=== PATIENT | female | born 1945 | race Caucasian/White ===

== ENCOUNTER → 2018-12-06 | Day surgery (SDC) | payer MEDICARE ==
[2018-12-04 14:16] LABS: BASOPHILS % 0.3 % (0.0-1.0); EOSINOPHILS # (AUTO) 0.1 (0.0-0.4); EOSINOPHILS % 1.1 % (0.0-6.0); HEMATOCRIT 43.5 % (34.2-44.1); HEMOGLOBIN 14.2 g/dL (12.0-16.0); LYMPHOCYTES # (AUTO) 2.1 (1.0-3.2); LYMPHOCYTES % 19.8 % (18.0-39.1); MEAN CORPUSCULAR HEMOGLOBIN 31.5 pg (28-32); MEAN CORPUSCULAR HGB CONC 32.6 g/dL (31-35); MEAN CORPUSCULAR VOLUME 96.5 fL (81-99); MONOCYTES # (AUTO) 0.6 (0.2-0.8); MONOCYTES % 5.5 % (4.4-11.3); NEUTROPHILS # (AUTO) 7.9 (2.1-6.9); NEUTROPHILS % 72.7 % (38.7-80.0); PLATELET COUNT 284 x10e3/uL (140-360); RED BLOOD COUNT 4.51 x10e6/uL (3.6-5.1); RED CELL DISTRIBUTION WIDTH 12.6 % (11.7-14.4)
[2018-12-04 14:28] LABS: INR 0.87; PROTHROMBIN TIME 12.3 seconds (11.9-14.5)
[2018-12-04 14:29] LABS: PARTIAL THROMBOPLASTIN TIME 25.6 seconds (23.8-35.5)
[2018-12-04 14:31] LABS: ANION GAP 16.4 mmol/L (8-16); CALCIUM 9.7 mg/dL (8.4-10.2); CREATININE, SERUM 1.29 mg/dL (0.57-1.11); POTASSIUM 5.4 mmol/L (3.5-5.1)
--- NOTE | 2018-12-04 15:18 | Diagnostic Imaging Report ---
EXAMINATION: PA and lateral views of the chest. COMPARISON: None CLINICAL HISTORY: Preoperative study for cardiac catheterization DISCUSSION: Left subclavian approach implantable cardiac device body projects over the left midlung. Leads project over the right atrium and right ventricle. Median sternotomy wires and mediastinal surgical clips. The lungs are well-inflated and without consolidation, pleural effusion, or pneumothorax. Normal heart size without overt pulmonary edema. No acute osseous abnormality. Multilevel degenerative disc changes of the thoracic spine. Left lower cervical surgical clips may relate to carotid endarterectomy. IMPRESSION: No acute cardiopulmonary abnormalities. Signed by: Dr. Anders Gleason M.D. on 12/04/2018 3:15 PM
[2018-12-06] VITALS (16 sets, daily range): BP systolic 110–149; BP diastolic 56–96
[~2018-12-06] VITALS: Ht 162.6 cm; Wt 98.0 kg
[~2018-12-06] MED LIST: AMLODIPINE BESYL5 MG PO; ATORVASTATIN CA10 MG PO; BYDUREON 2 MG SQ; CALCIUM 600 +1 EAC2 PO; CENTRUM SILVER VIT PO; D3-5050000 UNIT PO; FENTANYL CITRATE/PF 100MCG/2 ML INJ ONE; HEPARIN SOD (PORCINE) 1000 UNIT/ML 30ML ONE; HEPARIN SOD/SOD CHLORIDE 2,000 ML ONE; HYDROCODONE/APAP 5MG-325MG TAB ONE; HYDROCODONE/APAP 5MG-325MG TAB PO ONE; IOPAMIDOL 370 MG/ML 200 ML INFUS..BTL INJ ONE; LIDOCAINE HCL 2% LOCAL 20 ML VIAL ONE; METRONIDAZOLE 1% TP; MIDAZOLAM HCL 2 MG/2 ML VIAL ONE; NITROGLYCERIN/D5W 200 MCG/ML 250 ML ONE; RAMIPRIL5 MG PO; SODIUM CHLORIDE 0.9% 1000ML 1,000 ML ONE; [UNRECOGNIZED DRUG - OTHER] SQ
--- OUTSIDE RECORDS SUMMARY | 2018-12-06 06:28 | XMS REPORT ---
Author Author [facility] Address Unknown Phone Unavailable Care Team Providers Care Bus Driver Name Role Phone VERÓNICA WHITE Unavailable Unavailable Problems This patient has no known problems. Allergies, Adverse Reactions, Alerts This patient has no known allergies or adverse reactions. Medications This patient has no known medications. Results Test Description Test Time Test Comments Text Results Atomic Results Result Comments CHEST 2 VIEWS 2018-12-04 15:14:00 [place] [address] Patient Name: BILLY LOCK MR #: [id number] : 1945 Age/Sex: 73/F Req #: [id number] Adm Physician: Ordered by: VERÓNICA WHITE MD Report #: [id number] Location: RADIOLOGY MANAGER Room/Bed: Procedure: [id number] DX/CHEST 2 VIEWS Exam Date: 12/04/18 Exam Time: 1425 REPORT STATUS: Signed EXAMINATION: PA and lateral views of the chest. COM PARISON: None CLINICAL HISTORY: Preoperative study for cardiac catheterization DISCUSSION: Left subclavian approach implantable cardiac device body projects over the left midlung. Leads project over the right atrium and right ventricle. Median sternotomy wires and mediastinal surgical clips. The lungs are well-inflated and without consolidation, pleural effusion, or pneumothorax. Normal heart size without overt pulmonary edema. No acute osseous abnormality. Multilevel degenerative disc changes of the thoracic spine. Left lower cervical surgical clips may relate to carotid endarterectomy. IMPRESSION: No acute cardiopulmonary abnormalities. Signed by: Dr. Nuvia Stack M.D. on 12/04/2018 3:15 PM Dictated By: NUVIA STACK MD [id number] Transcribed By: BRUNA on 12/04/18 [id number] COPY TO: VERÓNICA WHITE MD
[2018-12-06 07:33] LABS: ANION GAP 14.1 mmol/L (8-16); BLOOD UREA NITROGEN 18 mg/dL (7-26); BUN/CREATININE RATIO 21 (6-25); CALCIUM 9.4 mg/dL (8.4-10.2); CARBON DIOXIDE 25 mmol/L (22-29); CHLORIDE 105 mmol/L (98-107); CREATININE, SERUM 0.85 mg/dL (0.57-1.11); EST GLOMERULAR FILTRATION RATE > 60 ML/MIN (60-); GLUCOSE 179 mg/dL (74-118); POTASSIUM 4.1 mmol/L (3.5-5.1); SODIUM 140 mmol/L (136-145)
--- NOTE | 2018-12-06 09:13 | NUR ---
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 Family at bedside Reviewed POC with Dr Escudero at family and pt. Copies of DC given to family. RT groin manual hold. No gross signs pain,pallor.pressure or dysrhythmia.No current hematoma . Clean and dry dressing. Abdomen soft and non tender denies necessity to defecate Voided qs on bedpan. left arm iv infusing 0.9ns at kvo . No s/s infiltration. Bilateral femoral pulses present. Denies CP or SOB Monitor NST w/o ectopics. dawna/rn
--- NOTE | 2018-12-06 11:30 | NUR ---
1130 medicated Narco5/325 for right chronic hip pain remains flat till 3pm vs stable rt groin site w/o s/s hematoma or bleeding.
--- NOTE | 2018-12-06 12:30 | NUR ---
1230 pt resting quietly No gross signs pain,pallor ,pressure or dysrhythmia.Rt hip pain appears relieved. ds/rn
--- NOTE | 2018-12-06 14:30 | NUR ---
1430 HOB elevated tolerated well. assist dressing rt groin site remain dry and intact w/o signs hematoma or bleeding. Discussed POC ,has copies of dc papers. Dressed and ready for dc home with . Denies Cp or SOB. Vs stable. Denies hip discomfort. 1500pm assist to w/c iv removed with Coban dressing and 2x2. NO signs of infiltration. Escorted to car with [facility] employee escort per w/c. Has copies of POC and aware of f/o 1wk MD office. Denies c/o CP NO gross signs with pain,pallor,pressure or dysrhythmia. is bung driver to pt home. ds/rn
--- NOTE | 2018-12-06 21:07 | Operative Report ---
DATE OF PROCEDURE: 12/06/2018 SURGEON: Tucker Lincoln MD INDICATION: Chest pain and apical ischemia. ANESTHESIA: 2% lidocaine for local anesthesia and fentanyl and Versed for conscious sedation. BLOOD LOSS: 5 mL. DESCRIPTION OF PROCEDURE: After informed consent, the patient was brought to the cardiac catheterization laboratory and placed on the table. Both groins were painted and draped in a sterile fashion. Lidocaine injected in the right groin for local anesthesia. The right femoral artery was accessed by Seldinger technique, and a 5-[place] sheath was placed in the right femoral artery. Attempts were made to cannulate the left main artery using the JL4, JL3.5, and a JL5 catheters, but we would not selectively access the left main. So, AL1 5-[place] Amplatz catheter was used to cannulate the left main. Coronary angiogram was performed and images were obtained in multiple views. The right coronary artery was cannulated using a 3DRC 5-[place] catheter, and coronary angiogram was performed and images were obtained in multiple views. The pigtail catheter would not advance into the LV-gram. Then, ascending aortogram was performed using a pigtail catheter. The WALKER to the LAD was cannulated using a WALKER catheter, and coronary angiogram was performed and images were obtained in multiple views. On the aortic root, there appeared to be a graft from the root to the circumflex. Although, the patient did mention she had one bypass. Attempts were made to cannulate that graft using the LCB catheter, but however, it could not be selectively accessed. The patient tolerated the procedure without any complications. REPORT: 1. Left main; is of normal caliber, has 50% to 60% distal lesion. 2. Left anterior descending; normal caliber and is totally occluded in its mid segment. The first diagonal branch is a small branch, has 70% to 80% proximal lesion. 3. Left circumflex; normal caliber, diffusely diseased with a 60% to 70% proximal lesion. 4. Right coronary artery; normal caliber, diffusely diseased. PDA has calcified 60% to 70% lesion. 5. The WALKER to the LAD is patent. 6. The patient mentioned that she had just 1 bypass graft. There appeared to be another graft to the circumflex. It appeared to be patent. Could not be selectively accessed. 7. Ascending aorta; no significant aortic insufficiency is noted. There appears to be another graft from the aortic root, which appears to go to the left circumflex. PLAN: Medical management. MD MAYRA Whitney/MODCecelia /[id number] [id number]
== END | disposition home or self-care (01) ==
LOC: CATH LAB 06:25
DX: I25.810 Atherosclerosis of coronary artery bypass graft(s) without angina pectoris (principal); I10 Essential (primary) hypertension; R07.2 Precordial pain; R94.39 Abnormal result of other cardiovascular function study; I65.22 Occlusion and stenosis of left carotid artery; E66.9 Obesity, unspecified; Z01.810 Encounter for preprocedural cardiovascular examination; Z01.812 Encounter for preprocedural laboratory examination; Z01.818 Encounter for other preprocedural examination; Z79.4 Long term (current) use of insulin; Z79.02 Long term (current) use of antithrombotics/antiplatelets; Z79.82 Long term (current) use of aspirin; Z88.2 Allergy status to sulfonamides; Z68.36 Body mass index [BMI] 36.0-36.9, adult; Z95.0 Presence of cardiac pacemaker; Z82.49 Family history of ischemic heart disease and other diseases of the circulatory system
CPT/HCPCS: 36415 ×2; 71046; 80048 ×2; 85025; 85610; 85730; 93005; 93455; J1644; J2001; J2250; J7030; Q9967